=== PATIENT | male | born 1980 | race American Indian/Alaskan Native ===

== ENCOUNTER 2018-07-27 03:02 | Emergency (ER) | payer BC ==
[2018-07-27] MEDS ORDERED: IBUPROFEN PO ONE (06:20)
[2018-07-27] MEDS ORDERED: DECADRON IM ONE (07:20)
[2018-07-27] MEDS ORDERED: PROVENTIL IH ONE (07:20)
[2018-07-27] MEDS ORDERED: TESSALON PERLES PO ONE (07:21)
--- NOTE | 2018-07-27 07:29 | Emergency Department Report ---
Minor Respiratory - HPI Chief Complaint: Upper Respiratory Infection Stated Complaint: cough w pain Time Seen by Provider: 07/27/18 07:10 Duration: weeks Pain Location: Chest Severity: moderate Minor Respiratory: Yes Able to Tolerate Fluids, Yes Cough, No Rhinorrhea, No Sore Throat, No Ear Pain, No Sick Contacts, No Hemoptysis, No Chest Pain, No Shortness of Breath, No Fever Other History: Patient is a 37-year-old -[place] male who comes to the ER with a several week history of upper respiratory tract infection. He states the weeks ago he had a fever and he thought he was getting over it but the cough has persisted. The cough has been severe causing left lower rib cage pain. Patient denies chest pain, trauma or shortness of breath. He just states that he feels congested in his upper airways and cannot cough adequately enough to clear it due to the pain. ED Review of Systems ROS: Stated complaint: LEFT SIDE PAIN Other details as noted in HPI Comment: All other systems reviewed and negative Constitutional: see HPI. denies: chills, fever Eyes: as per HPI. denies: eye pain ENT: as per HPI. denies: ear pain, throat pain Respiratory: see HPI, cough. denies: orthopnea Cardiovascular: as per HPI. denies: chest pain, palpitations, dyspnea on exertion, orthopnea, edema, syncope Endocrine: no symptoms reported Gastrointestinal: denies: abdominal pain Genitourinary: denies: urgency Musculoskeletal: denies: back pain Skin: denies: rash Neurological: denies: weakness Psychiatric: denies: depression Hematological/Lymphatic: denies: easy bleeding ED Past Medical Hx - Past Medical History Previous Medical History?: No - Surgical History Past Surgical History?: No - Family History Family history: no significant - Social History Smoking Status: Never Smoker Substance Use Type: Alcohol - Medications Home Medications: Home Medications Medication Instructions Recorded Confirmed Last Taken Type Amoxicillin 500 mg PO BID #20 capsule 07/27/18 Unknown Rx Benzonatate [Tessalon Perles] 100 mg PO Q8HR PRN #20 capsule 07/27/18 Unknown Rx predniSONE [Deltasone] 50 mg PO QDAY #5 tab 07/27/18 Unknown Rx Minor Respiratory Exam - Exam General: Vital signs noted. No distress. Alert and acting appropriately. HEENT: Yes Moist Mucous Membranes, No Pharyngeal Erythema, No Pharyngeal Exudates, No Rhinorrhea, No Conjuctival Injection, No Frontal Tenderness, No Maxillary Tenderness Ear: Neither TM Bulge, Neither TM Erythema, Neither EAC Pain, Neither EAC Discharge Neck: Yes Supple, No Adenopathy Lungs: Yes Good Air Exchange, Yes Wheezes, Yes Cough, No Ronchi, No Stridor, No Labored Respirations, No Retractions, No Use of Accessory Muscles, No Other Abnormal Lung Sounds Heart: Yes Regular, No Murmur Abdomen: Yes Normal Bowel Sounds, No Tenderness, No Peritoneal Signs Skin: No Rash, No Edema Neurologic: Alert and oriented, no deficits. Musculoskeletal: Unremarkable. ED Course Vital Signs 07/27/18 07/27/18 03:07 07:00 Temperature 97.7 F Pulse Rate 102 H Respiratory 18 20 Rate Blood Pressure 142/91 O2 Sat by Pulse 97 Oximetry - Reevaluation(s) Reevaluation #1: 07/27/18 07:26 no home meds ED Medical Decision Making - Radiology Data Radiology results: report reviewed, image reviewed interpreted by me: no consolidation - Medical Decision Making no fever. no consolidation on xray splinting of coughing due to pain w cough of lower left rib cage medicated non toxic ambulatory taking po - Differential Diagnosis ro pna Critical care attestation.: If time is entered above; I have spent that time in minutes in the direct care of this critically ill patient, excluding procedure time. ED Disposition Clinical Impression: Cough, URTI (acute upper respiratory infection), Rib pain on left side Disposition: DC-01 TO HOME OR SELFCARE Is pt being admited?: No Does the pt Need Aspirin: No Condition: Stable Instructions: Cold Symptoms (ED) Additional Instructions: HYDRATE WELL WITH WATER THIS WILL HELP WITH COUGH DIET TOLERATED MEDS ORDERED TODAY FOLLOW UP PCP IN 72 H IF THIS PERSISTS REFERRAL GIVEN BELOW ACTIVITY TOLERATED COOL MIST HUMIDIFIER WILL HELP WITH COUGH Prescriptions: Amoxicillin 500 mg PO BID #20 capsule Benzonatate [Tessalon Perles] 100 mg PO Q8HR PRN #20 capsule PRN Reason: Cough predniSONE [Deltasone] 50 mg PO QDAY #5 tab Referrals: PRIMARY CARE, [Primary Care Provider] - 3-5 Days Time of Disposition: 07:28
[2018-07-27 08:43] VITALS: BP 122/87
--- NOTE | 2018-07-27 16:07 | XRay Report ---
FINAL REPORT EXAM: XR CHEST ROUTINE 2V HISTORY: flank pain with cough TECHNIQUE: Frontal and lateral chest radiographs. PRIORS: None. FINDINGS: The cardiomediastinal silhouette is normal. No focal consolidation. No pleural effusion. No pneumothorax. No acute osseous abnormality. IMPRESSION: No acute cardiopulmonary process.
== END 2018-07-27 08:44 | disposition home or self-care (01) ==
LOC: ED 03:02
DX: J06.9 Acute upper respiratory infection, unspecified (principal)
CPT/HCPCS: 71046; 94640; 96372; 99283; J1100

== ENCOUNTER 2021-05-28 03:47 | Emergency (ER) | payer BC ==
[2021-05-28] MEDS ORDERED: KETOROLAC 60 MG/2 ML INJ IM ONE (04:21)
[2021-05-28 04:57] LABS: Basophils % (Auto) 0.6 % (0.0-1.8); Eosinophils # (Auto) 0.4 K/mm3 (0.0-0.4); Eosinophils % (Auto) 5.4 % (0.0-4.3); Hematocrit 42.7 % (35.5-45.6); Hemoglobin 14.5 gm/dl (11.8-15.2); Lymphocytes # (Auto) 2.7 K/mm3 (1.2-5.4); Lymphocytes % (Auto) 39.4 % (13.4-35.0); Mean Corpuscular HGB Conc 34 % (32-34); Mean Corpuscular Volume 85 fl (84-94); Monocytes # (Auto) 0.5 K/mm3 (0.0-0.8); Monocytes % (Auto) 7.3 % (0.0-7.3); Platelet Count 179 K/mm3 (140-440); Red Blood Count 5.04 M/mm3 (3.65-5.03)
[2021-05-28 05:14] LABS: BUN/Creatinine Ratio 11; Blood Urea Nitrogen 12 mg/dL (9-20); Calcium 8.7 mg/dL (8.4-10.2); Hemolysis Index 12
--- NOTE | 2021-05-28 05:22 | XRay Report ---
LEFT SHOULDER 3 VIEW(S) INDICATION / CLINICAL INFORMATION: pain, no injury. COMPARISON: None available. FINDINGS: BONES / JOINT(S): No acute fracture or subluxation. Mild AC joint degenerative arthrosis. SOFT TISSUES: No significant abnormality. ADDITIONAL FINDINGS: None. Signer Name: Eleazar Patrick MD Signed: 05/28/2021 5:18 AM Workstation Name: [id number]
--- NOTE | 2021-05-28 05:22 | XRay Report ---
CHEST 2 VIEWS INDICATION / CLINICAL INFORMATION: chest pain. COMPARISON: 07/27/18 FINDINGS: SUPPORT DEVICES: None. HEART / MEDIASTINUM: No significant abnormality. LUNGS / PLEURA: No significant pulmonary or pleural abnormality. No pneumothorax. ADDITIONAL FINDINGS: No significant additional findings. IMPRESSION: 1. No acute findings. No change. Signer Name: Eleazar Patrick MD Signed: 05/28/2021 5:17 AM Workstation Name: [id number]
--- NOTE | 2021-05-28 05:25 | Emergency Department Report ---
ED General Adult HPI - General Chief complaint: Shoulder Injury Stated complaint: SHOULDER PAIN Time Seen by Provider: 05/28/21 03:57 Source: patient Mode of arrival: Ambulatory Limitations: No Limitations - History of Present Illness Initial comments: 40-year-old -[place] male patient presents with complaints of left shoulder pain x3 days. He denies any injury and states the pain mainly occurs with movement of his arm or when lying down on his shoulder. Pain radiates into the upper part of his left chest, however he denies chest pain or shortness of breath or cough/fever/chills/sweats. Ibuprofen is not helping per patient. He does admit to frequent heavy lifting for work with [employer]. He denies any past medical history Severity scale (0 -10): 10 - Related Data Previous Rx's Medication Instructions Recorded Last Taken Type Amoxicillin 500 mg PO BID #20 capsule 07/27/18 Unknown Rx Benzonatate [Tessalon Perles] 100 mg PO Q8HR PRN #20 capsule 07/27/18 Unknown Rx predniSONE [Deltasone] 50 mg PO QDAY #5 tab 07/27/18 Unknown Rx Naproxen 500 mg PO BID PRN #20 tablet 05/28/21 Unknown Rx methocarbamoL [Methocarbamol] 750 - 1,500 mg PO TID PRN #30 05/28/21 Unknown Rx tablet Allergies Allergy/AdvReac Type Severity Reaction Status Date / Time No Known Allergies Allergy Verified 07/27/18 03:23 ED Review of Systems ROS: Stated complaint: SHOULDER PAIN Other details as noted in HPI Constitutional: denies: chills, diaphoresis, fever, malaise, weakness Respiratory: denies: cough, shortness of breath Cardiovascular: as per HPI Gastrointestinal: denies: abdominal pain Musculoskeletal: arthralgia ED Past Medical Hx - Past Medical History Previous Medical History?: Yes Additional medical history: bells palsy - Surgical History Past Surgical History?: No - Social History Smoking Status: Never Smoker Substance Use Type: Alcohol - Medications Home Medications: Home Medications Medication Instructions Recorded Confirmed Last Taken Type Amoxicillin 500 mg PO BID #20 capsule 07/27/18 Unknown Rx Benzonatate [Tessalon Perles] 100 mg PO Q8HR PRN #20 capsule 07/27/18 Unknown Rx predniSONE [Deltasone] 50 mg PO QDAY #5 tab 07/27/18 Unknown Rx Naproxen 500 mg PO BID PRN #20 tablet 05/28/21 Unknown Rx methocarbamoL [Methocarbamol] 750 - 1,500 mg PO TID PRN #30 05/28/21 Unknown Rx tablet ED Physical Exam - General Limitations: No Limitations General appearance: alert, in no apparent distress, obese - Head Head exam: Present: atraumatic, normocephalic - Eye Eye exam: Present: normal appearance - Neck Neck exam: Present: normal inspection, full ROM. Absent: tenderness - Respiratory Respiratory exam: Present: normal lung sounds bilaterally. Absent: respiratory distress - Cardiovascular Cardiovascular Exam: Present: regular rate, normal rhythm - Extremities Exam Extremities exam: Present: other (+ Yergason test of left shoulder) - Expanded Upper Extremity Exam Left Shoulder Exam: Present: full ROM. Absent: tenderness, swelling, abrasion, deformity Upper Arm exam: Present: normal inspection Elbow exam: Present: normal inspection - Neurological Exam Neurological exam: Present: alert, oriented X3, normal gait - Psychiatric Psychiatric exam: Present: normal affect, normal mood - Skin Skin exam: Present: warm, dry, intact, normal color. Absent: rash ED Course Vital Signs 05/28/21 03:53 Temperature 98.1 F Pulse Rate 107 H Respiratory 17 Rate Blood Pressure 134/96 [Right] O2 Sat by Pulse 98 Oximetry ED Medical Decision Making - Lab Data Result diagrams: 05/28/21 04:35 05/28/21 04:35 Lab Results 05/28/21 05/28/21 05/28/21 Range/Units 04:35 04:35 04:35 WBC 6.8 (4.5-11.0) K/mm3 RBC 5.04 H (3.65-5.03) M/mm3 Hgb 14.5 (11.8-15.2) gm/dl Hct 42.7 (35.5-45.6) % MCV 85 (84-94) fl MCH 29 (28-32) pg MCHC 34 (32-34) % RDW 14.0 (13.2-15.2) % Plt Count 179 (140-440) K/mm3 Lymph % (Auto) 39.4 H (13.4-35.0) % [place] % (Auto) 7.3 (0.0-7.3) % Eos % (Auto) 5.4 H (0.0-4.3) % Baso % (Auto) 0.6 (0.0-1.8) % Lymph # (Auto) 2.7 (1.2-5.4) K/mm3 [place] # (Auto) 0.5 (0.0-0.8) K/mm3 Eos # (Auto) 0.4 (0.0-0.4) K/mm3 Baso # (Auto) 0.0 (0.0-0.1) K/mm3 Seg Neutrophils % 47.3 (40.0-70.0) % Seg Neutrophils # 3.2 (1.8-7.7) K/mm3 Sodium 139 (137-145) mmol/L Potassium 3.6 (3.6-5.0) mmol/L Chloride 103.9 (98-107) mmol/L Carbon Dioxide 22 (22-30) mmol/L Anion Gap 17 mmol/L BUN 12 (9-20) mg/dL Creatinine 1.1 (0.8-1.3) mg/dL Estimated GFR > 60 ml/min BUN/Creatinine Ratio 11 % Glucose 122 H (75-100) mg/dL Calcium 8.7 (8.4-10.2) mg/dL Troponin T < 0.010 (0.00-0.029) ng/mL - Radiology Data Radiology results: report reviewed LEFT SHOULDER 3 VIEW(S) INDICATION / CLINICAL INFORMATION: pain, no injury. COMPARISON: None available. FINDINGS: BONES / JOINT(S): No acute fracture or subluxation. Mild AC joint degenerative arthrosis. SOFT TISSUES: No significant abnormality. ADDITIONAL FINDINGS: None. CHEST 2 VIEWS INDICATION / CLINICAL INFORMATION: chest pain. COMPARISON: 07/27/18 FINDINGS: SUPPORT DEVICES: None. HEART / MEDIASTINUM: No significant abnormality. LUNGS / PLEURA: No significant pulmonary or pleural abnormality. No pn eumothorax. ADDITIONAL FINDINGS: No significant additional findings. IMPRESSION: 1. No acute findings. No change. - Medical Decision Making 40-year-old -[place] male patient presents with complaints of left shoulder pain x3 days. He denies any injury and states the pain mainly occurs with movement of his arm or when lying down on his shoulder. Pain radiates into the upper part of his left chest, however he denies chest pain or shortness of breath or cough/fever/chills/sweats. Ibuprofen is not helping per patient. He does admit to frequent heavy lifting for work with [employer]. He denies any past medical history Critical care attestation.: If time is entered above; I have spent that time in minutes in the direct care of this critically ill patient, excluding procedure time. ED Disposition Clinical Impression: Left shoulder pain Disposition: HOME / SELF CARE / HOMELESS Is pt being admited?: No Condition: Stable Instructions: Shoulder Pain Prescriptions: methocarbamoL [Methocarbamol] 750 - 1,500 mg PO TID PRN #30 tablet PRN Reason: Muscle spasm/tightness Naproxen 500 mg PO BID PRN #20 tablet PRN Reason: pain Referrals: [facility] [Provider Group] - 3-5 Days [facility] [Provider Group] - 3-5 Days Forms: Work/School Release Form(ED)
[2021-05-28 05:56] VITALS: BP 146/94
--- NOTE | 2021-05-28 11:28 | Electrocardiograph Report ---
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
== END 2021-05-28 06:05 | disposition home or self-care (01) ==
LOC: ED 03:47
DX: M25.512 Pain in left shoulder (principal); F10.20 Alcohol dependence, uncomplicated
CPT/HCPCS: 36415; 71046; 73030; 80048; 84484; 85025; 93005; 96372; 99283; J1885

== ENCOUNTER 2021-06-22 22:37 | Observation (INO) | payer BC ==
[2021-06-22] MEDS ORDERED: ADENOSINE 6 MG/2 ML INJ IV ONE (22:51)
[2021-06-22 23:19] LABS: Basophils # (Auto) 0.1 K/mm3 (0.0-0.1); Basophils % (Auto) 0.5 % (0.0-1.8); Eosinophils # (Auto) 0.1 K/mm3 (0.0-0.4); Eosinophils % (Auto) 0.7 % (0.0-4.3); Hematocrit 44.5 % (35.5-45.6); Hemoglobin 14.8 gm/dl (11.8-15.2); Lymphocytes # (Auto) 3.6 K/mm3 (1.2-5.4); Lymphocytes % (Auto) 35.1 % (13.4-35.0); Mean Corpuscular HGB Conc 33 % (32-34); Mean Corpuscular Volume 86 fl (84-94); Monocytes # (Auto) 0.7 K/mm3 (0.0-0.8); Monocytes % (Auto) 6.9 % (0.0-7.3); Platelet Count 195 K/mm3 (140-440); Red Blood Count 5.19 M/mm3 (3.65-5.03)
[2021-06-22 23:42] LABS: Alanine Aminotransferase 26 units/L (7-56); Albumin 4.4 g/dL (3.9-5); BUN/Creatinine Ratio 11; Blood Urea Nitrogen 15 mg/dL (9-20); Calcium 9.3 mg/dL (8.4-10.2); Hemolysis Index 21
--- NOTE | 2021-06-23 00:18 | Emergency Department Report ---
ED Palpitations HPI - General Chief Complaint: Arrhythmia/Palpitations Stated Complaint: HEART RACING Time Seen by Provider: 06/22/21 22:51 Source: patient Mode of arrival: Ambulatory Limitations: No Limitations - History of Present Illness Initial Comments: CC: rapid heartbeat HPI: This is a 40 yo male with hx of BMI 37 and Ellis's palsy who presents with rapid heartbeat which begain one hour prior to arrival. Resting heart rate normal 95 bpm according to his smartwatch. Patient's watch revealed 195 bpm. He denies chest pain. Denies shortness of breath. Denies fever. Denies recent illness. No sick contacts. He denies tobacco or recreational drug use. Drinks alcohol only socially. There is a family history of hypertension. No known c ardiac disease in the family. MD Complaint: rapid heart beat, "heart racing" -: Sudden, hour(s) (1 hour prior to arrival) Context: occured during rest Arrythmia History: other (No previous history of dysrhythmia) Associated Symptoms: denies other symptoms Treatments Prior to Arrival: other (Patient came to emergency department via private auto.) - Related Data Previous Rx's Medication Instructions Recorded Last Taken Type Amoxicillin 500 mg PO BID #20 capsule 07/27/18 Unknown Rx Benzonatate [Tessalon Perles] 100 mg PO Q8HR PRN #20 capsule 07/27/18 Unknown Rx predniSONE [Deltasone] 50 mg PO QDAY #5 tab 07/27/18 Unknown Rx Naproxen 500 mg PO BID PRN #20 tablet 05/28/21 Unknown Rx methocarbamoL [Methocarbamol] 750 - 1,500 mg PO TID PRN #30 05/28/21 Unknown Rx tablet Allergies Allergy/AdvReac Type Severity Reaction Status Date / Time No Known Allergies Allergy Verified 07/27/18 03:23 ED Review of Systems ROS: Stated complaint: HEART RACING Other details as noted in HPI Comment: All other systems reviewed and negative Constitutional: denies: chills, fever, malaise Respiratory: denies: cough, shortness of breath Cardiovascular: palpitations. denies: chest pain Gastrointestinal: denies: abdominal pain, nausea, vomiting ED Past Medical Hx - Past Medical History Previous Medical History?: Yes Additional medical history: bells palsy - Surgical History Past Surgical History?: No - Family History Family history: hypertension - Social History Smoking Status: Never Smoker Substance Use Type: None - Medications Home Medications: Home Medications Medication Instructions Recorded Confirmed Last Taken Type Amoxicillin 500 mg PO BID #20 capsule 07/27/18 Unknown Rx Benzonatate [Tessalon Perles] 100 mg PO Q8HR PRN #20 capsule 07/27/18 Unknown Rx predniSONE [Deltasone] 50 mg PO QDAY #5 tab 07/27/18 Unknown Rx Naproxen 500 mg PO BID PRN #20 tablet 05/28/21 Unknown Rx methocarbamoL [Methocarbamol] 750 - 1,500 mg PO TID PRN #30 05/28/21 Unknown Rx tablet ED Physical Exam - General Limitations: No Limitations General appearance: alert, in no apparent distress, anxious - Head Head exam: Present: atraumatic, normocephalic - Eye Eye exam: Present: normal appearance - ENT ENT exam: Present: mucous membranes moist - Neck Neck exam: Present: normal inspection, full ROM - Respiratory Respiratory exam: Present: normal lung sounds bilaterally. Absent: respiratory distress, wheezes, rales, rhonchi - Cardiovascular Cardiovascular Exam: Present: normal rhythm, tachycardia, normal heart sounds. Absent: systolic murmur, diastolic murmur, rubs, gallop - GI/Abdominal GI/Abdominal exam: Present: soft, normal bowel sounds. Absent: distended, tenderness, guarding, rebound - Rectal Rectal exam: Present: deferred - Extremities Exam Extremities exam: Present: normal inspection - Neurological Exam Neurological exam: Present: alert, oriented X3 - Psychiatric Psychiatric exam: Present: normal affect, normal mood - Skin Skin exam: Present: warm, dry, intact, normal color. Absent: rash ED Course Vital Signs 06/22/21 06/22/21 06/22/21 22:41 22:45 22:49 Temperature 98 F Pulse Rate 172 H 191 H 189 H Respiratory 28 H 22 Rate Blood Pressure 157/85 161/89 O2 Sat by Pulse 100 99 Oximetry 06/22/21 06/22/21 06/22/21 23:01 23:15 23:31 Temperature Pulse Rate 117 H 114 H 109 H Respiratory 15 18 12 Rate Blood Pressure 154/101 154/98 148/94 O2 Sat by Pulse 99 98 98 Oximetry 06/22/21 06/23/21 06/23/21 23:45 00:01 00:15 Temperature Pulse Rate 113 H 114 H 107 H Respiratory 20 26 H 15 Rate Blood Pressure 134/100 152/112 161/110 O2 Sat by Pulse 97 97 97 Oximetry 06/23/21 06/23/21 06/23/21 00:31 00:45 01:01 Temperature Pulse Rate 109 H 106 H Respiratory 17 26 H Rate Blood Pressure 153/98 140/104 159/108 O2 Sat by Pulse 98 98 98 Oximetry 06/23/21 06/23/21 01:15 01:31 Temperature Pulse Rate Respiratory Rate Blood Pressure 159/103 163/110 O2 Sat by Pulse 98 98 Oximetry ED Medical Decision Making - Lab Data Result diagrams: 06/22/21 23:00 06/22/21 23:00 - EKG Data 06/23/21 00:19 EKG obtained 2249 #1 EKG interpreted by me Rate 190 bpm normal axis normal intervals narrow complex supraventricular tachycardia EKG #2 obtained 2302 EKG interpreted by me Rate 110 bpm sinus tachycardia normal axis normal intervals no ST elevation nonischemic T wave pattern absence of delta wave - Radiology Data Radiology results: report reviewed Chest radiograph 1 view AP portable: No acute findings according to radiology impression - Medical Decision Making SVT heart rate 195 to 200 bpm. Narrow complex SVT with out evidence of WPW. With Valsalva maneuver, normal sinus rhythm conversion. 1 hour after initial conversion with Valsalva maneuver, SVT recurred. Valsalva maneuver again converted rhythm to sinus rhythm. CBC chemistry within normal limits exception of mildly elevated 1.4 creatinine. Phosphorus magnesium within normal limits. BNP less than 5. Troponin negative. TSH within normal limits. D-dimer within normal limits. EKG revealed narrow complex supraventricular tachycardia suspected AV tanner reentry tachycardia. I spoke with physical therapy manager on-call Dr. Mcclain. Dr. Mcclain suspects suspects pulmonary hypertension. He recommended Cardizem 60 mg 3 times daily first dose to be given now. Patient is admitted to the hospitalist service. Critical Care Time: Yes Critical care time in (mins) excluding proc time.: 40 Critical care attestation.: If time is entered above; I have spent that time in minutes in the direct care of this critically ill patient, excluding procedure time. 40 minutes of critical care time excluding procedures were used in the care of the patient. I came immediately to the bedside upon patient's arrival to treatment room. I discussed treatment plan with the nursing team members. I reviewed electronic record. I kept the family member informed. Patient required multiple interventions and reassessments. ED Disposition Clinical Impression: SVT (supraventricular tachycardia) Disposition: 09 ADMITTED INPATIENT Is pt being admited?: Yes Does the pt Need Aspirin: No Condition: Stable
[2021-06-23] MEDS ORDERED: dilTIAZem 60 MG TAB PO STA (00:36)
--- NOTE | 2021-06-23 01:02 | XRay Report ---
XR chest 1V ap INDICATION / CLINICAL INFORMATION: svt. COMPARISON: 05/28/2021 FINDINGS: SUPPORT DEVICES: None. HEART /PULMONARY VASCULATURE: No significant abnormality. LUNGS / PLEURA: No significant pulmonary or pleural abnormality. No pneumothorax. ADDITIONAL FINDINGS: No significant additional findings. IMPRESSION: 1. No acute findings. Signer Name: Godwin Diaz MD Signed: 06/23/2021 12:57 AM Workstation Name: [id number]
[2021-06-23] MEDS ORDERED: traMADol 50 MG TAB PO PRN (01:12)
[2021-06-23] MEDS ORDERED: ACETAMINOPHEN 325 MG TAB PO PRN (01:12)
[2021-06-23] MEDS ORDERED: MORPHINE 4 MG/1 ML INJ IV PRN (01:12)
[2021-06-23] MEDS ORDERED: NITROGLYCERIN 0.4 MG TAB SUBL SL PRN (01:12)
--- NOTE | 2021-06-23 01:18 | History and Physical Report ---
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 Resting heart rate normal 95 bpm according to his smartwatch. Patient's watch revealed 195 bpm. He denies chest pain. Denies shortness of breath. Denies fever. Denies recent illness. No sick contacts. He denies tobacco or recreational drug use. Drinks alcohol only socially. There is a family history of hypertension. No known cardiac disease in the family. In the emergency room patient is found to have SVT heart rate 195 to 200 bpm. SVT converted by EKG with out evidence of LBW. With Valsalva maneuver, normal sinus rhythm conversion. 1 hour after initial conversion with Valsalva maneuver, SVT recurred. Valsalva maneuver again converted rhythm to sinus. CBC chemistry within normal limits exception of mildly elevated 1.4 creatinine. Phosphorus magnesium within normal limits. BNP less than 5. Troponin negative. TSH within normal limits. D-dimer within normal limits. 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 Subsequently Case discussed with ironworker apprentice on-call Dr. Mcclain. Dr. Mcclain suspects suspects pulmonary hypertension. He recommended Cardizem 60 mg 3 times daily first dose to be given now. Will consult cardiology for evaluation Past History Past Medical History: other (Obesity, Ellis's palsy) Medications and Allergies Allergies Allergy/AdvReac Type Severity Reaction Status Date / Time No Known Allergies Allergy Verified 07/27/18 03:23 Home Medications Medication Instructions Recorded Confirmed Last Taken Type Amoxicillin 500 mg PO BID #20 capsule 07/27/18 Unknown Rx Benzonatate [Tessalon Perles] 100 mg PO Q8HR PRN #20 capsule 07/27/18 Unknown Rx predniSONE [Deltasone] 50 mg PO QDAY #5 tab 07/27/18 Unknown Rx Naproxen 500 mg PO BID PRN #20 tablet 05/28/21 Unknown Rx methocarbamoL [Methocarbamol] 750 - 1,500 mg PO TID PRN #30 05/28/21 Unknown Rx tablet Active Meds: Active Medications Diltiazem HCl (Diltiazem 60 Mg Tab) 60 mg PO TID [facility] Review of Systems All systems: negative Cardiovascular: palpitations Exam - Constitutional Vitals: Temp Pulse Resp BP Pulse Ox 98 F 120 H 19 152/112 98 06/22/21 22:41 06/23/21 00:01 06/23/21 00:01 06/23/21 00:01 06/23/21 00:01 General appearance: Present: no acute distress, well-nourished - EENT Eyes: Present: PERRL ENT: hearing intact, clear oral mucosa - Neck Neck: Present: supple, normal ROM - Respiratory Respiratory effort: normal Respiratory: bilateral: CTA - Cardiovascular Heart Sounds: Present: S1 & S2. Absent: rub, click - Extremities Extremities: pulses symmetrical, No edema Peripheral Pulses: within normal limits - Abdominal General gastrointestinal: Present: soft, non-tender, non-distended, normal bowel sounds Male genitourinary: Present: normal - Integumentary Integumentary: Present: clear, warm, dry - Musculoskeletal Musculoskeletal: gait normal, strength equal bilaterally - Psychiatric Psychiatric: appropriate mood/affect, intact judgment & insight - Neurologic Neurologic: CNII-XII intact, moves all extremities HEART Score - HEART Score Troponin: Troponin T < 0.010 ng/mL (0.00-0.029) 06/22/21 23:00 Results - Labs CBC & Chem 7: 06/22/21 23:00 06/22/21 23:00 Labs: Laboratory Last Values WBC 10.3 K/mm3 (4.5-11.0) 06/22/21 23:00 RBC 5.19 M/mm3 (3.65-5.03) H 06/22/21 23:00 Hgb 14.8 gm/dl (11.8-15.2) 06/22/21 23:00 Hct 44.5 % (35.5-45.6) 06/22/21 23:00 MCV 86 fl (84-94) 06/22/21 23:00 MCH 29 pg (28-32) 06/22/21 23:00 MCHC 33 % (32-34) 06/22/21 23:00 RDW 14.0 % (13.2-15.2) 06/22/21 23:00 Plt Count 195 K/mm3 (140-440) 06/22/21 23:00 Lymph % (Auto) 35.1 % (13.4-35.0) H 06/22/21 23:00 Sullivan % (Auto) 6.9 % (0.0-7.3) 06/22/21 23:00 Eos % (Auto) 0.7 % (0.0-4.3) 06/22/21 23:00 Baso % (Auto) 0.5 % (0.0-1.8) 06/22/21 23:00 Lymph # (Auto) 3.6 K/mm3 (1.2-5.4) 06/22/21 23:00 Sullivan # (Auto) 0.7 K/mm3 (0.0-0.8) 06/22/21 23:00 Eos # (Auto) 0.1 K/mm3 (0.0-0.4) 06/22/21 23:00 Baso # (Auto) 0.1 K/mm3 (0.0-0.1) 06/22/21 23:00 Seg Neutrophils % 56.8 % (40.0-70.0) 06/22/21 23:00 Seg Neutrophils # 5.9 K/mm3 (1.8-7.7) 06/22/21 23:00 D-Dimer 146.57 ng/mlDDU (0-234) 06/22/21 23:00 Sodium 142 mmol/L (137-145) 06/22/21 23:00 Potassium 3.7 mmol/L (3.6-5.0) 06/22/21 23:00 Chloride 106.6 mmol/L (98-107) 06/22/21 23:00 Carbon Dioxide 21 mmol/L (22-30) L 06/22/21 23:00 Anion Gap 18 mmol/L 06/22/21 23:00 BUN 15 mg/dL (9-20) 06/22/21 23:00 Creatinine 1.4 mg/dL (0.8-1.3) H 06/22/21 23:00 Estimated GFR > 60 ml/min 06/22/21 23:00 BUN/Creatinine Ratio 11 % 06/22/21 23:00 Glucose 123 mg/dL (75-100) H 06/22/21 23:00 Calcium 9.3 mg/dL (8.4-10.2) 06/22/21 23:00 Phosphorus 3.70 mg/dL (2.5-4.5) 06/22/21 23:00 Magnesium 2.00 mg/dL (1.7-2.3) 06/22/21 23:00 Total Bilirubin 0.30 mg/dL (0.1-1.2) 06/22/21 23:00 AST 18 units/L (5-40) 06/22/21 23:00 ALT 26 units/L (7-56) 06/22/21 23:00 Alkaline Phosphatase 77 units/L (35-129) 06/22/21 23:00 Troponin T < 0.010 ng/mL (0.00-0.029) 06/22/21 23:00 NT-Pro-B Natriuret Pep < 5 pg/mL (0-450) 06/22/21 23:00 Total Protein 7.3 g/dL (6.3-8.2) 06/22/21 23:00 Albumin 4.4 g/dL (3.9-5) 06/22/21 23:00 Albumin/Globulin Ratio 1.5 % 06/22/21 23:00 TSH 1.650 mlU/mL (0.270-4.200) 06/22/21 23:00 - Imaging and Cardiology Chest x-ray: report reviewed Assessment and Plan VTE prophylaxis?: Chemical Plan of care discussed with patient/family: Yes - Patient Problems (1) SVT (supraventricular tachycardia) Current Visit: Yes Status: Acute Plan to address problem: Met the patient to the [facility] telemetry. Aspirin 81 mg p.o. daily. Cardizem 60 mg 3 times daily. Lipitor 40 mg p.o. daily. We will do the serial cardiac enzymes.. We will also do a echocardiogram and consult cardiology for evaluation (2) Ellis's palsy Current Visit: Yes Status: Acute Plan to address problem: Stable. We will continue the home medication (3) Obesity Current Visit: Yes Status: Acute Plan to address problem: We counseled the patient regarding weight reduction. Outpatient follow-up with bariatric surgery (4) DVT prophylaxis Current Visit: Yes Status: Acute Plan to address problem: Heparin 5000 units subcu every 8 hours for DVT prophylaxis. Pepcid 20 mg p.o. twice daily for GI prophylaxis. Patient is a full code
[2021-06-23] MEDS ORDERED: HEPARIN 5,000 UNIT/1 ML VIAL SUB-Q SCH (06:00)
[2021-06-23] MEDS: dilTIAZem 60 MG TAB PO SCH ×2 (06:06→13:25)
[2021-06-23 07:57] LABS: Basophils % (Auto) 0.5 % (0.0-1.8); Eosinophils # (Auto) 0.1 K/mm3 (0.0-0.4); Eosinophils % (Auto) 1.4 % (0.0-4.3); Hematocrit 43.4 % (35.5-45.6); Hemoglobin 14.1 gm/dl (11.8-15.2); Lymphocytes # (Auto) 2.8 K/mm3 (1.2-5.4); Lymphocytes % (Auto) 41.1 % (13.4-35.0); Mean Corpuscular HGB Conc 32 % (32-34); Mean Corpuscular Volume 86 fl (84-94); Monocytes # (Auto) 0.5 K/mm3 (0.0-0.8); Monocytes % (Auto) 6.8 % (0.0-7.3); Platelet Count 170 K/mm3 (140-440); Red Blood Count 5.02 M/mm3 (3.65-5.03); Red Cell Distribution Width 14.4 % (13.2-15.2)
[2021-06-23] MEDS ORDERED: dilTIAZem 60 MG TAB PO SCH (08:00)
[2021-06-23 08:06] LABS: BUN/Creatinine Ratio 12; Blood Urea Nitrogen 16 mg/dL (9-20); Hemolysis Index 7
--- NOTE | 2021-06-23 08:46 | Progress Note ---
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 Resting heart rate normal 95 bpm according to his smartwatch. Patient's watch revealed 195 bpm. He denies chest pain. Denies shortness of breath. Denies fever. Denies recent illness. No sick contacts. He denies tobacco or recreational drug use. Drinks alcohol only socially. There is a family history of hypertension. No known cardiac disease in the family. In the emergency room patient is found to have SVT heart rate 195 to 200 bpm. SVT converted by EKG with out evidence of LBW. With Valsalva maneuver, normal sinus rhythm conversion. 1 hour after initial conversion with Valsalva maneuver, SVT recurred. Valsalva maneuver again converted rhythm to sinus. CBC chemistry within normal limits exception of mildly elevated 1.4 creatinine. Phosphorus magnesium within normal limits. BNP less than 5. Troponin negative. TSH within normal limits. D-dimer within normal limits. 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 Subsequently Case discussed with metal control worker on-call Dr. Mcclain. Dr. Mcclain suspects suspects pulmonary hypertension. He recommended Cardizem 60 mg 3 times daily first dose to be given now. Will consult cardiology for evaluation Hospital Course: 06/23: Assessment and Plan: - Patient Problems (1) SVT (supraventricular tachycardia) Current Visit: Yes Status: Acute Plan to address problem: telemetry. Aspirin 81 mg p.o. daily. Cardizem 60 mg 3 times daily. Lipitor 40 mg p.o. daily. Trop negative x 2. echocardiogram consult cardiology for evaluation (2) Ellis's palsy Current Visit: Yes Status: Acute Plan to address problem: Stable. We will continue the home medication (3) Obesity Current Visit: Yes Status: Acute Plan to address problem: We counseled the patient regarding weight reduction. Outpatient follow-up with bariatric surgery (4) DVT prophylaxis Current Visit: Yes Status: Acute Plan to address problem: Heparin 5000 units subcu every 8 hours for DVT prophylaxis. Pepcid 20 mg p.o. twice daily for GI prophylaxis. Patient is a full code Hospitalist Physical - Constitutional Vitals: Temp Pulse Resp BP Pulse Ox 98 F 97 H 26 H 163/110 97 06/22/21 22:41 06/23/21 03:00 06/23/21 00:45 06/23/21 01:31 06/23/21 04:19 General appearance: Present: no acute distress, well-nourished HEART Score - HEART Score Troponin: Troponin T < 0.010 ng/mL (0.00-0.029) 06/23/21 07:06 Results - Labs CBC & Chem 7: 06/23/21 07:06 06/23/21 07:06 Labs: Laboratory Last Values WBC 6.8 K/mm3 (4.5-11.0) 06/23/21 07:06 RBC 5.02 M/mm3 (3.65-5.03) 06/23/21 07:06 Hgb 14.1 gm/dl (11.8-15.2) 06/23/21 07:06 Hct 43.4 % (35.5-45.6) 06/23/21 07:06 MCV 86 fl (84-94) 06/23/21 07:06 MCH 28 pg (28-32) 06/23/21 07:06 MCHC 32 % (32-34) 06/23/21 07:06 RDW 14.4 % (13.2-15.2) 06/23/21 07:06 Plt Count 170 K/mm3 (140-440) 06/23/21 07:06 Lymph % (Auto) 41.1 % (13.4-35.0) H 06/23/21 07:06 Hickman % (Auto) 6.8 % (0.0-7.3) 06/23/21 07:06 Eos % (Auto) 1.4 % (0.0-4.3) 06/23/21 07:06 Baso % (Auto) 0.5 % (0.0-1.8) 06/23/21 07:06 Lymph # (Auto) 2.8 K/mm3 (1.2-5.4) 06/23/21 07:06 Hickman # (Auto) 0.5 K/mm3 (0.0-0.8) 06/23/21 07:06 Eos # (Auto) 0.1 K/mm3 (0.0-0.4) 06/23/21 07:06 Baso # (Auto) 0.0 K/mm3 (0.0-0.1) 06/23/21 07:06 Seg Neutrophils % 50.2 % (40.0-70.0) 06/23/21 07:06 Seg Neutrophils # 3.4 K/mm3 (1.8-7.7) 06/23/21 07:06 D-Dimer 146.57 ng/mlDDU (0-234) 06/22/21 23:00 Sodium 142 mmol/L (137-145) 06/23/21 07:06 Potassium 3.6 mmol/L (3.6-5.0) 06/23/21 07:06 Chloride 107.2 mmol/L (98-107) H 06/23/21 07:06 Carbon Dioxide 22 mmol/L (22-30) 06/23/21 07:06 Anion Gap 16 mmol/L 06/23/21 07:06 BUN 16 mg/dL (9-20) 06/23/21 07:06 Creatinine 1.3 mg/dL (0.8-1.3) 06/23/21 07:06 Estimated GFR > 60 ml/min 06/23/21 07:06 BUN/Creatinine Ratio 12 % 06/23/21 07:06 Glucose 113 mg/dL (75-100) H 06/23/21 07:06 Calcium 9.0 mg/dL (8.4-10.2) 06/23/21 07:06 Phosphorus 3.70 mg/dL (2.5-4.5) 06/22/21 23:00 Magnesium 2.00 mg/dL (1.7-2.3) 06/22/21 23:00 Total Bilirubin 0.30 mg/dL (0.1-1.2) 06/22/21 23:00 AST 18 units/L (5-40) 06/22/21 23:00 ALT 26 units/L (7-56) 06/22/21 23:00 Alkaline Phosphatase 77 units/L (35-129) 06/22/21 23:00 Troponin T < 0.010 ng/mL (0.00-0.029) 06/23/21 07:06 NT-Pro-B Natriuret Pep < 5 pg/mL (0-450) 06/22/21 23:00 Total Protein 7.3 g/dL (6.3-8.2) 06/22/21 23:00 Albumin 4.4 g/dL (3.9-5) 06/22/21 23:00 Albumin/Globulin Ratio 1.5 % 06/22/21 23:00 TSH 1.650 mlU/mL (0.270-4.200) 06/22/21 23:00 Perdue/IV: Voiding Method Toilet Active Medications - Current Medications Current Medications: Generic Name Dose Route Start Last Admin Trade Name Freq PRN Reason Stop Dose Admin Acetaminophen 650 mg 06/23/21 01:12 Acetaminophen 325 Mg Tab PO Q6H PRN Pain, Mild (1-3) Aspirin 81 mg 06/24/21 10:00 Aspirin 81 Mg Tab Chew PO QDAY [facility] Atorvastatin Calcium 40 mg 06/23/21 22:00 Atorvastatin 40 Mg Tab PO QHS [facility] Diltiazem HCl 60 mg 06/23/21 06:00 06/23/21 06:06 Diltiazem 60 Mg Tab PO 60 mg Q8H REKHA Administration Heparin Sodium (Porcine) 5,000 unit 06/23/21 06:00 06/23/21 06:06 Heparin 5,000 Unit/1 Ml Vial SUB-Q 5,000 unit Q8HR [facility] Administration Morphine Sulfate 2 mg 06/23/21 01:12 Morphine 4 Mg/1 Ml Inj IV Q5MIN PRN Chest Pain unrelieved by NTG Nitroglycerin 0.4 mg 06/23/21 01:12 Nitroglycerin 0.4 Mg Tab Subl SL Q5M PRN Chest Pain Pantoprazole Sodium 40 mg 06/23/21 10:00 Pantoprazole 40 Mg Tab PO QDAY [facility] Sodium Chloride 10 ml 06/23/21 01:12 Sodium Chloride 0.9% 10 Ml Flush Syringe IV PRN PRN LINE FLUSH Tramadol HCl 50 mg 06/23/21 01:12 Tramadol 50 Mg Tab PO Q6H PRN Pain, Moderate (4-6)
--- NOTE | 2021-06-23 09:42 | Electrocardiograph Report ---
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
--- NOTE | 2021-06-23 09:43 | Electrocardiograph Report ---
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
--- NOTE | 2021-06-23 09:43 | Electrocardiograph Report ---
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
[2021-06-23] MEDS ORDERED: PANTOPRAZOLE 40 MG TAB PO SCH (10:00)
--- NOTE | 2021-06-23 11:26 | Discharge Summary ---
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 Resting heart rate normal 95 bpm according to his smartwatch. Patient's watch revealed 195 bpm. He denies chest pain. Denies shortness of breath. Denies fever. Denies recent illness. No sick contacts. He denies tobacco or recreational drug use. Drinks alcohol only socially. There is a family history of hypertension. No known cardiac disease in the family. In the emergency room patient is found to have SVT heart rate 195 to 200 bpm. SVT converted by EKG with out evidence of LBW. With Valsalva maneuver, normal sinus rhythm conversion. 1 hour after initial conversion with Valsalva maneuver, SVT recurred. Valsalva maneuver again converted rhythm to sinus. CBC chemistry within normal limits exception of mildly elevated 1.4 creatinine. Phosphorus magnesium within normal limits. BNP less than 5. Troponin negative. TSH within normal limits. D-dimer within normal limits. 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 Subsequently Case discussed with quality manager on-call Dr. Mcclain. Dr. Mcclain suspects suspects pulmonary hypertension. He recommended Cardizem 60 mg 3 times daily first dose to be given now. Will consult cardiology for evaluation Hospital Course to date: Patient admitted for supraventricular tachycardia. Initially patient was able to complete Valsalva maneuver and break SVT rhythm. However SVT reoccurred. Per cardiology patient was able to be started on Cardizem 60 mg 3 times daily. Patient has maintained normal sinus rhythm since starting medication. After discussion with cardiology patient can be discharged with follow-up instructions to see cardiology as an outpatient. Echo ordered this hospitalization can be completed as an outpatient as well. He will be discharged home with prescription for Cardizem 60 mg 3 times daily. Disposition: HOME / SELF CARE / HOMELESS Final Discharge Diagnosis (Prints w/discharge instructions): Supraventricular Tachycardia Time spent for discharge: 25 Core Measure Documentation - Palliative Care Palliative Care/ Comfort Measures: Not Applicable - Core Measures Any of the following diagnoses?: none Exam - Physical Exam Narrative exam: Physical Exam: VITAL SIGNS: Reviewed. GENERAL: The patient appears normally developed, Vital signs as documented. HEAD: No signs of head trauma. EYES: Pupils are equal. Extraocular motions intact. EARS: Hearing grossly intact. MOUTH: Oropharynx is normal. NECK: No adenopathy, no JVD. CHEST: Chest with clear breath sounds bilaterally. No wheezes, rales, or rhonchi. CARDIAC: Regular rate and rhythm. S1 and S2, without murmurs, gallops, or rubs. VASCULAR: No Edema. Peripheral pulses normal and equal in all extremities. ABDOMEN: Soft, non tender and non distended. No rebound or guarding, and no masses palpated. Bowel Sounds normal. MUSCULOSKELETAL: Good range of motion of all major joints. Extremities without clubbing, cyanosis or edema. NEUROLOGIC EXAM: Alert and oriented x 4. no focal sensory or strength deficits. PSYCHIATRIC: Mood normal. SKIN: detail exam as documented in skin assessment - Constitutional Vitals: Temp Pulse Resp BP Pulse Ox 98 F 97 H 26 H 163/110 97 06/22/21 22:41 06/23/21 03:00 06/23/21 00:45 06/23/21 01:31 06/23/21 04:19 Plan Activity: no restrictions Diet: low fat, low cholesterol, low salt Plan of Treatment: Colin Cardona. You are admitted for supraventricular tachycardia. This was treated with a medication called Cardizem. Your heart rate and rhythm have improved subsequently. Your evaluated by cardiology who recommended continuation of this medication and follow-up as an outpatient at their office. A prescription was provided to you for this medication at discharge Dr. Mcclain will see you at [facility]. Follow up with: MARTA FLOWER CHRISTIE ROSS [Other] - 3-5 Days MACIE MCCLAIN MD [Staff Physician] - 7 Days Prescriptions: dilTIAZem [Cardizem] 60 mg PO Q8H 30 Days #90 tablet
--- NOTE | 2021-06-23 11:34 | Consultation ---
History of Present Illness Consult date: 06/23/21 Requesting physician: MELECIO HAYES Consult reason: arrhythmia History of present illness: 40-year-old male who works for [employer] having some shoulder issues. On medical leave. History of palpitations. But presents to ER with persistent palpitations found to have SVT. Tried vagal maneuver without response. Was given adenosine that broke the SVT but as per the ER physician was having breakthrough events. Was started on Cardizem 60 mg. And patient since has been maintaining sinus rhythm heart rate in the 70s and 80s. Denies any palpitations. This morning states having energy drinks in the past. Denies any drug use. Denies any syncope lightheadedness. Denies any chest pain. Past History Past Medical History: other (Obesity, Ellis's palsy) Past Surgical History: denies: No surgical history Social history: denies: no significant social history Family history: denies: no significant family history Medications and Allergies Allergies Allergy/AdvReac Type Severity Reaction Status Date / Time No Known Allergies Allergy Verified 07/27/18 03:23 Home Medications Medication Instructions Recorded Confirmed Last Taken Type Naproxen 500 mg PO BID PRN #20 tablet 05/28/21 Unknown Rx dilTIAZem [Cardizem] 60 mg PO Q8H 30 Days #90 tablet 06/23/21 Unknown Rx Active Meds: Active Medications Acetaminophen (Acetaminophen 325 Mg Tab) 650 mg PO Q6H PRN PRN Reason: Pain, Mild (1-3) Aspirin (Aspirin 81 Mg Tab Chew) 81 mg PO QDAY [facility] Atorvastatin Calcium (Atorvastatin 40 Mg Tab) 40 mg PO QHS [facility] Diltiazem HCl (Diltiazem 60 Mg Tab) 60 mg PO Q8H [facility] Last Admin: 06/23/21 06:06 Dose: 60 mg Documented by: Heparin Sodium (Porcine) (Heparin 5,000 Unit/1 Ml Vial) 5,000 unit SUB-Q Q8HR [facility] Last Admin: 06/23/21 06:06 Dose: 5,000 unit Documented by: Morphine Sulfate (Morphine 4 Mg/1 Ml Inj) 2 mg IV Q5MIN PRN PRN Reason: Chest Pain unrelieved by NTG Nitroglycerin (Nitroglycerin 0.4 Mg Tab Subl) 0.4 mg SL Q5M PRN PRN Reason: Chest Pain Pantoprazole Sodium (Pantoprazole 40 Mg Tab) 40 mg PO QDAY REKHA Last Admin: 06/23/21 10:49 Dose: 40 mg Documented by: Sodium Chloride (Sodium Chloride 0.9% 10 Ml Flush Syringe) 10 ml IV PRN PRN PRN Reason: LINE FLUSH Tramadol HCl (Tramadol 50 Mg Tab) 50 mg PO Q6H PRN PRN Reason: Pain, Moderate (4-6) Last Admin: 06/23/21 10:49 Dose: 50 mg Documented by: Review of Systems All systems: negative (As per the HPI) Physical Examination Vital Signs Temp Pulse Resp BP Pulse Ox 98 F 195 H 20 157/85 100 06/22/21 22:41 06/22/21 22:41 06/22/21 22:41 06/22/21 22:41 06/22/21 22:41 General appearance: no acute distress, well-nourished HEENT: Positive: PERRL, Mucus Membranes Moist Neck: Positive: neck supple, trachea midline Cardiac: Positive: Reg Rate and Rhythm, S1/S2. Negative: Audible Murmur Lungs: Positive: clear to auscultation, Normal Breath Sounds Neuro: Positive: Grossly Intact Abdomen: Positive: Soft, Active Bowel Sounds. Negative: Tender, Distended Male genitourinary: Positive: normal Skin: Positive: Clear Incision: Cardiac Cath Site Musculoskeletal: No Pain, Normal Range of Motion Extremities: Present: normal. Absent: edema Results 06/23/21 07:06 06/23/21 07:06 Cardiac Enzymes 06/22/21 Range/Units 23:00 AST 18 (5-40) units/L CBC 06/22/21 06/23/21 Range/Units 23:00 07:06 WBC 10.3 6.8 (4.5-11.0) K/mm3 RBC 5.19 H 5.02 (3.65-5.03) M/mm3 Hgb 14.8 14.1 (11.8-15.2) gm/dl Hct 44.5 43.4 (35.5-45.6) % Plt Count 195 170 (140-440) K/mm3 Lymph # (Auto) 3.6 2.8 (1.2-5.4) K/mm3 Gregg # (Auto) 0.7 0.5 (0.0-0.8) K/mm3 Eos # (Auto) 0.1 0.1 (0.0-0.4) K/mm3 Baso # (Auto) 0.1 0.0 (0.0-0.1) K/mm3 Comprehensive Metabolic Panel 06/22/21 06/23/21 Range/Units 23:00 07:06 Sodium 142 142 (137-145) mmol/L Potassium 3.7 3.6 (3.6-5.0) mmol/L Chloride 106.6 107.2 H (98-107) mmol/L Carbon Dioxide 21 L 22 (22-30) mmol/L BUN 15 16 (9-20) mg/dL Creatinine 1.4 H 1.3 (0.8-1.3) mg/dL Glucose 123 H 113 H (75-100) mg/dL Calcium 9.3 9.0 (8.4-10.2) mg/dL AST 18 (5-40) units/L ALT 26 (7-56) units/L Alkaline Phosphatase 77 (35-129) units/L Total Protein 7.3 (6.3-8.2) g/dL Albumin 4.4 (3.9-5) g/dL - Imaging and Cardiology Echo: pending EKG interpretations - Telemetry EKG Rhythm: SVT (Initial EKG shows SVT. Repeat EKG shows sinus rhythm in the 70s) Assessment and Plan 40-year-old male with SVT obesity continue Cardizem CD 180 mg discussed about reducing caffeine and stimulant use. Patient will follow up as an outpatient for possible ablation and echocardiogram. Lab work was appropriate with normal thyroid level and negative troponin.. May be discharged from a cardiovascular point of view
[2021-06-23] MEDS ORDERED: FLU VACC QUAD 2021-22(6MOS UP)/PF 60 MCG/0.5 ML SYRINGE IM ONE (12:00)
[2021-06-23 14:08] VITALS: BP 159/98
[2021-06-24] MEDS ORDERED: ASPIRIN 81 MG TAB CHEW PO SCH (10:00)
--- NOTE | 2021-06-24 11:39 | Electrocardiograph Report ---
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
== END 2021-06-23 13:30 | disposition home or self-care (01) ==
LOC: ED 22:37 → INTOOBSV 06-23 02:28 → 4A 06-23 02:28
PROVIDERS: ADMIT Hospitalist; ATTEND Internal Medicine
DX: I47.1 Supraventricular tachycardia (principal); G51.0 Bell's palsy; E66.9 Obesity, unspecified; Z68.37 Body mass index [BMI] 37.0-37.9, adult
CPT/HCPCS: 36415; 71045; 80048; 80053; 83735; 83880; 84100; 84443; 84484; 85025; 85379; 93005; 96372; 99291; G0378; J1644; 90686